=== PATIENT | female | born 1945 | race Caucasian/White ===

== ENCOUNTER 2017-12-23 10:51 | Observation (INO) | payer OTHER ==
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
[2017-12-23] MEDS ORDERED: hydrALAZINE 20 MG/ML VIAL SLOW IVP PRN (17:10)
[2017-12-23] MEDS ORDERED: Ondansetron ODT 4 MG TAB PO PRN (17:10)
[2017-12-23] MEDS ORDERED: Dextrose 5% in Water 1,000 ML IV PRN (17:10)
[2017-12-23] MEDS ORDERED: Dextrose 50% Abboject 50 ML SYRINGE SLOW IVP PRN (17:10)
[2017-12-23] MEDS ORDERED: Scopolamine 1.5 mg/72 hour Patch TD SCH (17:10)
[2017-12-23 18:06] VITALS: BMI 26.5
[2017-12-23] MEDS: Acetaminophen 500 MG TAB PO SCH ×2 (18:24→22:52)
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
[2017-12-23] MEDS ORDERED: Amlodipine 5 MG TAB PO SCH ×2 (21:00)
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
[2017-12-24 05:39] LABS: #Basophils 0.1 thou/uL (0.0-0.2); #Eosinphils 0.1 thou/uL (0.0-0.7); #Lymphocytes 2.4 thou/uL (1.20-3.40); #Monocytes 0.6 thou/uL (0.11-0.59); #Neutrophils 6.5 thou/uL (1.40-6.50); %Basophils 0.7 % (0.0-1.0); %Eosinophils 1.1 % (0.0-10.0); %Monocytes 6.6 % (0.0-10.0); %Neutrophils 66.6 % (42.0-75.0); Hemoglobin 11.8 g/dL (12.0-16.0); Mean Corpuscular HGB CONC 33.6 g/dL (32.0-36.0); Mean Corpuscular Hemoglobin 33.5 pg (27.0-31.0); Mean Corpuscular Volume 99.5 fl (81.0-99.0); Mean Platelet Volume 6.8 fL (7.4-10.4); Platelet Count 290 thou/uL (130-400); Red Blood Cell (RBC) Count 3.52 mill/uL (4.20-5.40); White Blood Cell (WBC) Count 9.7 thou/uL (4.8-10.8)
[2017-12-24] MEDS: Acetaminophen 500 MG TAB PO SCH ×2 (05:44→10:46)
[2017-12-24 05:53] LABS: Anion Gap 9 mmol/L (10-20); BUN (Urea Nitrogen) 14 mg/dL (9.8-20.1); Calc. Creatinine Clearance 82 mL/min (70-130); Calcium 9.2 mg/dL (7.8-10.44); Carbon Dioxide 29 mmol/L (23-31); Chloride 105 mmol/L (98-107); Estimated GFR-MDRD 72; Glucose 104 mg/dL (80-115); Potassium 3.8 mmol/L (3.5-5.1); Sodium 139 mmol/L (136-145)
--- NOTE | 2017-12-24 07:50 | CT ---
PRELIMINARY REPORT/[facility]/EMERGENCY AFTER HOURS PROCEDURE: EXAM: CT Head Without Intravenous Contrast CLINICAL HISTORY: 71 years old, female; Condition or disease; Other: Sah; Patient HX: F/u sah. Prior outside images not available at this time. TECHNIQUE: Axial computed tomography images of the head/brain without intravenous contrast. COMPARISON: No relevant prior studies available. FINDINGS: Very small amount of subarachnoid blood is suspected in the high right frontal region. No other definite acute intracranial hemorrhage at this time. Eventual comparison with recent outside prior exams may be helpful. No significant mass effect or midline shift. Ventricle size is normal for age. No definite acute infarct by CT. Evidence for soft tissue injury/scalp hematoma/laceration in the left frontal/parietal region. No definite acute skull fracture. Included paranasal sinuses are essentially clear. IMPRESSION: Very small amount of subarachnoid blood is suspected in the high right frontal region. No other definite acute intracranial hemorrhage at this time. No mass effect or midline shift. Soft tissue injury/scalp hematoma/laceration in the left frontal/parietal region. No definite acute skull fracture. Thank you for allowing us to participate in the care of your patient. Dictated and Authenticated by: Asaf Dickson MD 12/24/2017 5:05 AM Central Time ([place] & [place]) FINAL REPORT EMERGENCY AFTER HOURS CT BRAIN WITHOUT CONTRAST: Date: 12/24/17 COMPARISON: 12/23/17 at 0847 hours. FINDINGS/IMPRESSION: I agree with the findings and impression given in the preliminary report per [facility] physician. There is a stable small amount of subarachnoid hemorrhage in the right frontal lobe sulci. POS: OFF
[2017-12-24] MEDS ORDERED: Lisinopril/Hydrochlorothiazide 20/25 mg Tablet PO SCH ×2 (09:00)
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
[2017-12-24 15:54] VITALS: BP 119/56; TEMP 98.3
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
== END 2017-12-24 17:00 | disposition home or self-care (01) ==
LOC: ERS 10:51 → 2SE 12:05
PROVIDERS: ADMIT Surgery; ATTEND Surgery
DX: S06.6X9A Traumatic subarachnoid hemorrhage with loss of consciousness of unspecified duration, initial encounter (principal); V47.5XXA Car driver injured in collision with fixed or stationary object in traffic accident, initial encounter; Z88.0 Allergy status to penicillin; Z91.041 Radiographic dye allergy status; Z98.890 Other specified postprocedural states
CPT/HCPCS: 36415; 70450; 71250; 72125; 74177; 80048; 85025; G0378; G0390; G8978-GP-CI; G8979-GP-CI; G8980-GP-CI

== ENCOUNTER 2018-01-20 10:30 | Outpatient (CLI) | payer OTHER ==
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
== END 2018-01-20 10:31 | disposition home or self-care (01) ==
LOC: TBSIIMAG 10:30
PROVIDERS: ATTEND Surgery
DX: S06.6X0A Traumatic subarachnoid hemorrhage without loss of consciousness, initial encounter (principal)
CPT/HCPCS: 70450